=== PATIENT | female | born 1995 | race Caucasian/White ===

== ENCOUNTER 2018-10-08 07:30 | Outpatient (RCR) | payer BC ==
--- NOTE | 2017-04-28 09:47 | NUR ---
SW student requested previous oncology medical records to be sent from [facility] in [place] via faxed request.
[2018-08-13 13:26] VITALS: BP 117/74
--- NOTE | 2018-08-13 19:58 | [facility] ONCOLOGY NOTE ---
EVENT DATE: August 13, 2018 REFERRING PHYSICIAN Marilee Eldridge PA-C REASON FOR CONSULTATION Evaluation and management of recurrent DVT and PE. HEMATOLOGY HISTORY Patient is a 23-year-old female who was diagnosed in the remote past with DVT, left lower extremity, status post Coumadin. She had a recurrence of DVT, left lower extremity, which was extensive, and saddle PE, status post thrombolysis. 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 She received the Coumadin for a year, which was discontinued, and the patient was maintained on aspirin. She went to the Emergency Room in [place], [place], on July 01, 2018, with severe right lower quadrant abdominal pain. Patient was found to have haematoproteinuria, cause unknown, and extensive right lower extremity DVT. At that time, patient was transferred to [facility] where an IVC filter placed and the mechanical thrombolysis performed. Clots and the bleeding led to infection in the liver, so gallbladder removed. She was inpatient for nearly 18 days. She was seen by Dr. Perry, a leather etcher there, who found the increased APS antibodies, which would explain the bleeding after discontinuation of Coumadin, and it was thought that her current DVT of the right lower extremity was not related to May-Thurner syndrome. Patient after that restarted on Lovenox and the Coumadin, and she is currently on Coumadin 7.5 mg for four days and 5 mg for three days. PAST MEDICAL HISTORY 1. 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 2. Recurrent venous thromboembolism. PAST SURGICAL HISTORY 1. Cholecystectomy. 2. Thrombolysis of saddle pulmonary embolus and extensive DVT, right lower extremity. SOCIAL HISTORY Patient is single with no children. She works as an office computer lab attendant. She denies any abuse of tobacco, alcohol, or drugs. FAMILY HISTORY Negative for cancer or blood disease or blood clotting. CURRENT MEDICATIONS Coumadin 7.5 mg daily for four days and 5 mg for the other three days of the week. ALLERGIES No known drug allergies. REVIEW OF SYSTEMS CONSTITUTIONAL: No appetite or weight change. No fever, chills, or sweating. No recent infection. HEENT: Ears: No tinnitus or hearing problem. Nose: No nasal discharge or epistaxis. Throat: No sore throat or mouth ulcers. Eyes: No diplopia or visual changes. RESPIRATORY: No shortness of breath. No cough, expectoration, or hemoptysis. CARDIOVASCULAR: No chest pain, orthopnea, or paroxysmal nocturnal dyspnea (PND). No edema. No palpitations. GASTROINTESTINAL: No nausea or vomiting. No diarrhea or constipation. No change in bowel movements. No heartburn or swallowing difficulties. No abdominal pain. No jaundice. No hematemesis, melena, or rectal bleeding. GENITOURINARY: No hematuria or dysuria. MUSCULOSKELETAL: No pain in the muscles, joints, or bones. NEUROLOGIC: Patient has occasional headache. HEMATOLOGIC/LYMPHATIC: No bleeding or easy bruising. No weakness or fatigue. No enlarged lymph nodes. SKIN: No skin rash or lumps. PSYCHIATRIC: No anxiety or depression. PHYSICAL EXAMINATION GENERAL: Looks stable. Well developed, well nourished, and in no acute distress. VITAL SIGNS: Blood pressure 117/74, pulse 77 per minute, respirations 16 per minute, temperature 98.7, pulse ox 93% on room air. HEENT: Head: Atraumatic. No sinus tenderness to palpation. Eyes: No icterus or conjunctivitis. Mouth and throat: No oral thrush or mucositis. NECK: Supple. No cervical or supraclavicular lymphadenopathy. LUNGS: Clear to auscultation and percussion bilaterally. HEART: Regular rate and rhythm. No gallops, murmurs, clicks, or rubs. ABDOMEN: Soft and lax. No tenderness. No hepatosplenomegaly. No masses. EXTREMITIES: No cyanosis, clubbing, or edema. LYMPHATICS: No peripheral lymphadenopathy. NEUROLOGICAL: Conscious, alert, and oriented x3. No focal motor or sensory deficits. PSYCHIATRIC: Mood and affect appear normal. SKIN: No skin rash, bruise, or purpuric eruption. ASSESSMENT Recurrent venous thromboembolism. This is her third episode. Her first episode was in the left lower extremity, treated with Coumadin. Her second episode was extensive deep venous thrombosis of the left lower extremity and saddle pulmonary embolism, treated with thrombolysis, and the patient was maintained on Coumadin for a year, which was discontinued after the year. She presented recently with pain in the right lower quadrant. Patient was found to have haematoproteinuria of unknown etiology. She was also found to have extensive right lower extremity deep venous thrombosis, so the patient had an inferior vena caval filter placed and mechanical thrombolysis performed in June 2018. She is currently maintained on Coumadin 7.5 mg for four days and 5 mg for three days. During her treatment in [place], patient was found to have high antibodies to antiphospholipid antibody syndrome, and for this reason, I am planning to bring her back in and check her antiphospholipid antibody syndrome testing. If they remain positive, then the patient will be diagnosed with antiphospholipid antibody syndrome. Regarding her duration of anticoagulation, this is her third episodes of venous thromboembolism. Her second episode was very, very serious with saddle pulmonary embolism, and for this reason, patient is a candidate for life-long anticoagulation whether her thrombophilia workup is positive or negative. I explained that to the patient. She is agreeable with the plan of management. PLAN 1. Continue Coumadin as per [facility]. 2. Patient to return in one month with antiphospholipid antibody panel, anticardiolipin antibodies, beta-2 glycoprotein 1 antibodies, and lupus anticoagulant. 3. Patient to contact us for any new concerns or complaints. SHOSHANA
[2018-10-01 14:15] VITALS: BP 123/72
[~2018-10-08 07:30] MED LIST: ASPI-1471 PO; ENOX120D5 SQ; WARF5TAB23 PO
[2018-10-08 07:33] VITALS: BP 113/72
== END 2018-11-11 ==
LOC: SPU 07:30
PROVIDERS: ATTEND Internal Medicine Hematology
DX: I26.92 Saddle embolus of pulmonary artery without acute cor pulmonale (principal); I82.499 Acute embolism and thrombosis of other specified deep vein of unspecified lower extremity; Z79.01 Long term (current) use of anticoagulants
CPT/HCPCS: 36415; 83516; 85610; 85613; 85730; 86146; 86147; 86148; 99202